=== PATIENT | female | born 1965 | race Caucasian/White ===

== ENCOUNTER 2021-11-28 19:56 | Emergency (ER) | payer BC | END 2021-11-28 23:33 | disposition home or self-care (01) | LOC: JP.ED 19:56 | DX: S82.831A Other fracture of upper and lower end of right fibula, initial encounter for closed fracture (principal); S93.491A Sprain of other ligament of right ankle, initial encounter; I10 Essential (primary) hypertension; Z88.2 Allergy status to sulfonamides; Z79.899 Other long term (current) drug therapy; Z86.16 Personal history of COVID-19; X50.1XXA Overexertion from prolonged static or awkward postures, initial encounter | CPT/HCPCS: 73610-RT; 99282; 99283-25 ==